=== PATIENT | male | born 1955 | race Caucasian/White ===

== ENCOUNTER → 2021-05-03 00:37 | Outpatient (CLI) | payer BC, SELFPAY ==
[2021-05-03 18:54] LABS: SARS-CoV-2 RNA PCR Negative
== END ==
PROVIDERS: Visit Provider Nurse Practitioner Family
DX: R68.89 Other general symptoms and signs (principal); Z20.822 Contact with and (suspected) exposure to COVID-19
CPT/HCPCS: C9803; U0003; U0005

== ENCOUNTER 2021-07-18 18:38 | Emergency (ER) | payer OTHER, BC, SELFPAY ==
--- NOTE | ~2021-07-18 | XR_ITS ---
EXAMINATION: XR ankle LT min 3V EXAM DATE: 07/18/2021 19:20 INDICATION: left ankle pain laterally after injury. TECHNIQUE: Left ankle frontal, lateral and oblique projections obtained and reviewed. There is no pr ior study for comparison. FINDINGS: Small posterior and inferior calcaneal spurs. There are no acute fractures or dislocations identified. There is no subcutaneous gas. The soft tissue is unremarkable. There are no radiopaq ue foreign bodies. IMPRESSION: No acute osseous findings. Reviewed, dictated and finalized at location [facility] IMPRESSION: No acute osseous findings.
--- NOTE | ~2021-07-18 | XR_ITS ---
EXAMINATION: XR lumbar spine min 4V EXAM DATE: 07/18/2021 19:20 INDICATION: Back pain after injury. TECHNIQUE: Lumber spine frontal, lateral, bilateral oblique projections. Coned down frontal and lat eral L5-S1 lumbar projections for interpretation. There is no prior study for comparison. FINDINGS: There are no acute fractures identified. Sacrum, sacroiliac joints, sacral arcuate lines ar e intact. Mild lumbar levoscoliosis. No spondylolysis suspected. 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 Mild diffuse thoracolumbar disc disease. Moderate lower lumbar facet ar thropathy. The vertebral bodies are aligned in the AP dimension. Paraspinal soft tissue is unremark able. IMPRESSION: Mild to moderate lumbar spondylosis. Mild levoscoliosis. Reviewed, dictated and finalized at location [facility]
--- NOTE | 2021-07-18 18:55 | ED.FALL ---
HPI - Fall General Chief Complaint: Fall Stated Complaint: lower back/neckstiffness/left arm/leg pain Time Seen by Provider: 07/18/21 18:58 Source: patient and RN notes reviewed Mode of arrival: ambulatory Limitations: no limitations History of Present Illness HPI Narrative: 65-year-old male presents to the [facility] with lower back pain, left lateral neck stiffness, left leg pain after a shopping cart fell on it. Patient reports that he was pushing a shopping cart that was full of ice melt when a Related Data Home Medications Medication Instructions Recorded Confirmed albuterol sulfate 2 inh INHALATION DIRECTED 07/18/21 07/18/21 alprazolam 0.5 mg PO DIRECTED 07/18/21 07/18/21 escitalopram oxalate 10 mg PO DAILY 07/18/21 07/18/21 Allergies Allergy/AdvReac Type Severity Reaction Status Date / Time codeine Allergy Mild ITCHING Unverified 07/18/21 18:59 Sulfa (Sulfonamide Allergy Mild HIVES Unverified 07/18/21 18:59 Antibiotics) Contrast Media Allergy Mild HOT,SOB,PASSED Uncoded 07/18/21 18:59 OUT Review of Systems Review of Systems: All systems reviewed & are unremarkable except as noted in HPI and below Constitutional: Constitutional: Reports no additional constitutional complaints, Denies chills and Denies fever(s) Eyes: Eyes: Reports no additional eye complaints ENT: Reports system reviewed and no additional complaints, except as documented Cardiovascular: Cardiovascular: Reports no additional cardiovascular complaints Respiratory: Respiratory: Reports no additional respiratory complaints Gastrointestinal: Gastrointestinal: Reports no additional gastrointestinal complaints Musculoskeletal: Musculoskeletal: Reports no additional musculoskeletal complaints, Reports back pain and Reports arthralgias (Left ankle) Integumentary/Breasts: Skin/Breast: Reports system reviewed and no additional complaints, except as docu Neurologic: Reports system reviewed and no additional complaints, except as documented Psychiatric: Psychiatric: Reports no additional psychiatric complaints Allergic/Immunologic: Allergic/Immunologic: Reports no additional allergic/immunologic complaints PMFSH Comments At the time of my signature, I reviewed and agree with the nursing past medical, surgical, social, and family history. There is no relevant family history pertinent to the patient complaint. Exam Const: General: healthy appearing, no acute distress and alert Nutritional Appearance: well nourished Orientation/consciousness: patient oriented x3 Limitations: no limitations HENMT: Head: normal to inspection Ears: external ears normal, TM's normal bilaterally and EAC's normal Eyes: Conjunctivae: conjunctivae normal Pupils: Equal, round and reactive pupils present Neck: Neck: normal visual inspection, no lymphadenopathy and no meningeal signs Chest: Chest palpation & inspection: normal inspection of the chest Resp: Effort & Inspection: normal respiratory effort and no use of accessory muscles Auscultation: clear to auscultation bilaterally, no crackles, no rales, no rhonchi and no wheezes Cardio: Rate: regular rate Rhythm: regular rhythm GI: GI Palp: Yes Soft to palpation and No Tenderness to palpation present (GI) Back/Spine/Pelvis: Back: no CVA tenderness Cervical Spine: normal cervical lordosis, cervical ROM normal, cervical muscular tenderness (left lateral ), No pain with cervical ROM and No Cervical spine tenderness Thoracic/Lumbar Spine: thoracic and lumbar spine normal to inspection, thoraco-lumbar ROM normal, No thoracic spinal tenderness and No lumbar spinal tenderness Pelvis: no pain with anterior-posterior compression and no pain with lateral compression Other: Left lower lumbar Palpated patient's left arm, no tenderness in joints or along bones. Palpated patient's hip, thigh, knee, lower leg, ankle. Only tenderness was lateral ankle. Patient states it felt more muscular. Skin: General skin exam: n
[2021-07-18 18:57] VITALS: BP 163/94; PULSE 88; RESP 20; TEMP 37.1; O2SAT 98
== END 2021-07-18 19:37 | disposition home or self-care (01) ==
PROVIDERS: Emergency Provider Nurse Practitioner
DX: S90.02XA Contusion of left ankle, initial encounter (principal); S50.12XA Contusion of left forearm, initial encounter; S39.012A Strain of muscle, fascia and tendon of lower back, initial encounter; W20.8XXA Other cause of strike by thrown, projected or falling object, initial encounter
CPT/HCPCS: 72110; 73610; 99214; G0463

== ENCOUNTER 2021-10-28 18:30 | Emergency (ER) | payer BC, SELFPAY ==
[2021-10-28 18:46] VITALS: BP 156/91; PULSE 77; RESP 18; TEMP 37.4; O2SAT 97
--- NOTE | 2021-10-28 19:04 | ED.WOUNDLAC ---
HPI - Wound/Laceration General Stated Complaint: Lt Foot Wound Time Seen by Provider: 10/28/21 19:04 Source: patient and RN notes reviewed Mode of arrival: ambulatory Limitations: no limitations History of Present Illness HPI narrative: 66-year-old male presents concern for laceration to the dorsal aspect of the second digit of the left foot. He reports just prior to arrival he dropped a saws on his foot while wearing sandals with no socks. He reports the wound bled a bit. He denies decree strength, sensation, range of motion in the digit. He reports he is not up-to-date on his tetanus vaccine Related Data Home Medications Medication Instructions Recorded Confirmed No Home Medications 10/28/21 10/28/21 Allergies Allergy/AdvReac Type Severity Reaction Status Date / Time codeine Allergy Mild ITCHING Verified 10/28/21 19:17 Sulfa (Sulfonamide Allergy Mild HIVES Verified 10/28/21 19:17 Antibiotics) Contrast Media Allergy Mild HOT,SOB,PASSED Uncoded 10/28/21 19:17 OUT Review of Systems Review of Systems: CONSTITUTIONAL: Denies malaise, chills, sweats, or fever. SKIN: Reports laceration to the second digit of the left foot MUSCULOSKELETAL: Denies muscle skeletal pain NEUROLOGIC: Denies numbness, weakness All systems reviewed & are unremarkable except as noted in HPI and below PMFSH Comments At time of signature, agree with nursing past medical, surgical, social and family history. There is no relevant family history pertinent to the presenting complaint Exam Narrative: GENERAL: Well-appearing, well-nourished, and in no acute distress. HEAD: Normocephalic EYES: PERRLA, conjunctivae clear NECK: Supple. CHEST: Speaks in full sentences. No respiratory distress. HEART: Regular rate and rhythm. Normal and equal peripheral pulses. EXTREMITIES: Second digit of left foot has normal strength and sensation. 5/5 strength with digit flexion, extension. Range of motion normal. No clubbing, cyanosis, or edema noted. Normal digital cascade with flexion of fingers, median, ulnar and radial nerve intact. Normal sensation of each side of finger. Can perform 'okay' sign, 'cross over finger test of index and middle fingers' and 'thumbs up' sign. No scissoring. Normal thumb opposition. Good capillary refill and radial pulse. Distal capillary refill less than 3 seconds. Patient is right/left hand dominant SKIN: Warn, dry, intact, pink. 1.5 cm linear laceration through the dermis, not involving the subcutaneous tissue noted to the dorsal aspect of the second digit of the left foot, not gaping without surrounding erythema, induration or edema. NEURO: Alert and oriented x3. PSYCH: Normal mood and affect Course Course Emergency Course: Patient is aware of diagnosis, understands and agrees to treatment plan. Anticipatory guidance given. Patient agrees to follow-up as directed and is aware of reasons to seek care at the emergency department. Portions of this record may have been created with voice recognition software Level of Care: Express Care Visit Vital Signs Vital signs: Vital Signs Temperature 99.4 F 10/28/21 18:46 Pulse Rate 77 10/28/21 18:46 Respiratory Rate 18 10/28/21 18:46 Blood Pressure 156/91 H 10/28/21 18:46 Pulse Oximetry 97 10/28/21 18:46 Oxygen Delivery Room Air 10/28/21 18:46 Temperature 99.4 F 10/28/21 18:46 Pulse Rate 77 10/28/21 18:46 Respiratory Rate 18 10/28/21 18:46 Blood Pressure 156/91 H 10/28/21 18:46 Pulse Oximetry 97 10/28/21 18:46 Oxygen Delivery Room Air 10/28/21 18:46 Reviewed. Procedures Laceration Laceration 1: Date: 10/28/21 Time: 19:10 Site: lower extremity Side (If applicable): left Size (cm): 1.5 Description: linear Depth: simple, single layer Pre-repair: wound explored and irrigated ====== Skin Level ====== Skin layer closed with: dermabond ====== Subcutaneous Layer
[2021-10-28] MEDS: TETANUS,DIPHTHERIA,AC PERTUSSIS ADULT (0.5 ML) BOOSTRIX IM (19:14)
== END 2021-10-28 19:20 | disposition home or self-care (01) ==
PROVIDERS: Emergency Provider Nurse Practitioner
DX: S91.312A Laceration without foreign body, left foot, initial encounter (principal); W29.8XXA Contact with other powered hand tools and household machinery, initial encounter; Z23 Encounter for immunization; J45.909 Unspecified asthma, uncomplicated
CPT/HCPCS: 12001; 90471; 90715; 99213; G0463